=== PATIENT | female | born 1950 | race Caucasian/White ===

== ENCOUNTER 2020-08-04 11:08 | Emergency (ER) | payer OTHER ==
[~2020-08-04] VITALS: Ht 167.6 cm; Wt 67.6 kg
[2020-08-04 11:18] VITALS: BP 180/95
[2020-08-04] MEDS ORDERED: BLOOD PRESSURE MED (11:20)
[2020-08-04] MEDS ORDERED: SYNTHROID100 MC1 PO (11:20)
[2020-08-04] MEDS ORDERED: PREDNISONE 20 M20 M1 PO (11:45)
[2020-08-04] MEDS ORDERED: ZPAK PO (11:45)
== END 2020-08-04 11:56 | disposition home or self-care (01) ==
LOC: M.ERS 11:08
DX: J32.9 Chronic sinusitis, unspecified (principal); I10 Essential (primary) hypertension; E03.9 Hypothyroidism, unspecified; E11.9 Type 2 diabetes mellitus without complications; Z90.49 Acquired absence of other specified parts of digestive tract; Z79.899 Other long term (current) drug therapy

== ENCOUNTER 2021-01-16 05:40 | Observation (INO) | payer OTHER ==
[~2021-01-16] VITALS: Ht 167.6 cm; Wt 65.4 kg
[~2021-01-16 05:40] MED LIST: BLOOD PRESSURE MED; PREDNISONE 20 M20 M1 PO; SYNTHROID100 MC1 PO; ZPAK PO
[2021-01-16 05:50] VITALS: BP 206/107
[2021-01-16 06:10] LABS: ABSOLUTE BASOPHILS 0.1 thou/uL (0.0-0.2); ABSOLUTE EOSINOPHILS 0.1 thou/uL (0.0-0.7); ABSOLUTE LYMPHOCYTES 1.8 thou/uL (0.8-5.3); ABSOLUTE MONOCYTES 0.7 thou/uL (0.0-1.2); ABSOLUTE NEUTROPHILS 12.1 thou/uL (1.6-8.1); BASOPHILS 0.6 %; EOSINOPHILS 0.6 %; HEMATOCRIT 41.8 % (37.0-47.0); HEMOGLOBIN 13.8 gm/dL (12.0-15.0); LYMPHOCYTES 12.3 %; MCH 29.3 pg (26.0-34.0); MCHC 33.1 g/dL (28.0-37.0); MCV 88.6 fL (80.0-100.0); MPV 9.2 fl. (7.2-11.1); NUCLEATED RBCS 0 /100WBC; PLATELET COUNT* 270 thou/uL (150-400); POLYS 81.5 %; RBC 4.72 mil/uL (4.20-5.00); WBC 14.9 thou/uL (4.0-11.0)
[2021-01-16 06:23] LABS: CALCIUM 9.4 mg/dL (8.5-10.1); CREATININE 1.6 mg/dL (0.6-1.3); POTASSIUM 3.4 mmol/L (3.5-5.1)
[2021-01-16] MEDS ORDERED: NORVASC 2.5 MG2.5 MG PO (06:35)
[2021-01-16] MEDS ORDERED: LEVO-T50 MCG PO (06:36)
[2021-01-16] MEDS ORDERED: HYDROXYZINE HCL25 M2 PO (06:37)
[2021-01-16] MEDS ORDERED: GLIPIZIDE 10 MG10 MG PO (06:37)
[2021-01-16] MEDS ORDERED: METFORMIN HCL500 M3 PO (06:38)
[2021-01-16] MEDS ORDERED: GLUCOPHAGE1000 MG PO (06:38)
[2021-01-16] MEDS ORDERED: LIPITOR80 MG PO (06:38)
[2021-01-16 06:39] LABS: URINE BILIRUBIN NEGATIVE (Negative); URINE BLOOD 2+ (Negative); URINE CLARITY CLEAR; URINE COLOR YELLOW; URINE GLUCOSE-RANDOM 1+ (Negative); URINE KETONES TRACE (Negative); URINE LEUKOCYTES-REFLEX NEGATIVE (Negative); URINE NITRITE-REFLEX NEGATIVE (Negative); URINE PROTEIN 1+ (Negative); URINE UROBILINOGEN 0.2 E.U./dl (0.2-1.0)
[2021-01-16] MEDS ORDERED: LANTUS SUBQ (06:39)
[2021-01-16 06:47] LABS: SQUAMOUS 0-3 Few /LPF (0-3); WBC CLUMPS Few (None Seen)
[2021-01-16 06:48] LABS: CASTS None Seen /LPF (None Seen); CRYSTALS None Seen /LPF (None Seen); MUCUS 0-3 Light strn/LPF (None Seen); URINE RBC >20 Many /HPF (0-2); URINE WBC-REFLEX 6-15 Few /HPF (0-5)
[2021-01-16 10:15] VITALS: BP 135/79
--- NOTE | 2021-01-16 14:17 | EKG ---
[place] [address] ELECTROCARDIOGRAM REPORT Name: DIAMOND SPANN Arely Room: [address]#: [id number] Admission: 01/16/21 Attend Phys: Mala Hanley Discharge: Date of : 50 Date of Service: 01/16/21 1340 Report #: [id number] THIS REPORT FOR: //name// [facility] Test Date: 2021-01-16 Test Time: 13:40:57 Pat Name: DIAMOND SPANN Department: Room: [address] Gender: F Flake Drier: : 1950 Requested By: Zaki Chen Order Number: [id number] Dione MD: Fritz Trammell Measurements Intervals [place] Rate: 81 P: 10 PA: 131 QRS: 13 QRSD: 91 T: 47 QT: 402 QTc: 467 Interpretive Statements Sinus rhythm Low voltage, precordial leads RSR' in V1 or V2, right VCD or RVH No previous ECG available for comparison Electronically Signed On 01-16-2021 14:16:55 CDT by Fritz Trammell [email or web address] <ELECTRONICALLY SIGNED> By: Fritz Trammell MD, [facility] 01/16/21 1416 1340 1340 Fritz Trammell MD, [facility] /EPI
--- NOTE | 2021-01-16 18:07 | NUR ---
PATIENT ARRIVED TO UNIT FROM ER AT APPROX. 1025 FOR KIDNEY STONE. PATIENT IS A&OX4, PLEASANT AND COOPERATIVE WITH CARES. DENIES ANY PAIN/NAUSEA UPON ADMISSION. DR. DEXTER SAW PATIENT SHORTLY AFTER ADMISSION AND PATIENT WAS TAKEN TO PRE OP AT APPROX. 1330 FOR STONE REMOVAL. PATIENT RETURNED TO UNIT AT APPROX. 1635 AND HAS DENIED ANY PAIN/NAUSEA AND WAS ABLE TO TOLERATE REGULAR DIET AT DINNER. PATIENT IS UP WITH STANDBY ASSIST. CALL LIGHT AND FREQUENTLY USED ITEMS WITHIN REACH.
[2021-01-16 20:23] VITALS: BP 125/64
[2021-01-17 00:25] VITALS: BP 121/66
[2021-01-17 04:30] VITALS: BP 121/62
[2021-01-17 05:50] LABS: CALCIUM 8.7 mg/dL (8.5-10.1); CREATININE 1.7 mg/dL (0.6-1.3)
[2021-01-17 05:51] LABS: HEMATOCRIT 32.7 % (37.0-47.0); MCH 29.8 pg (26.0-34.0); MCHC 34.1 g/dL (28.0-37.0); MCV 87.4 fL (80.0-100.0); MPV 9.8 fl. (7.2-11.1); POTASSIUM 4.5 mmol/L (3.5-5.1); RBC 3.74 mil/uL (4.20-5.00); RDW-CV 12.5 % (10.5-14.5); WBC 10.5 thou/uL (4.0-11.0)
[2021-01-17 05:54] LABS: HEMOGLOBIN 11.2 gm/dL (12.0-15.0)
--- NOTE | 2021-01-17 07:39 | NUR ---
PATIENT HAS SLEPT WELL THROUGHOUT THE NIGHT. VSS ON RA. MEDICATIONS GIVEN ORDERED AND CHARTED. NO C/O PAIN. PATIENT UP WITH SBA. IV IN RIGHT FOREARM-SL. PATIENT INSTRUCTED TO USE CALL LIGHT WHEN NEEDING ASSISTANCE. HOURLY ROUNDS MADE. WILL CONTINUE WITH PLAN OF CARE AND NURSING TO MONITOR.
[2021-01-17 08:00] VITALS: BP 158/84
[2021-01-17] MEDS ORDERED: BACTRIM DS TAB1 EAC1 PO (09:47)
[2021-01-17 11:35] VITALS: BP 158/84
[2021-01-17 12:44] VITALS: BP 158/84
[2021-01-17 13:21] VITALS: BP 158/84
--- NOTE | 2021-01-17 19:53 | NUR ---
Pt remained A&Ox4 for entire shift. Vital signs stable. Pt denies pain. Pt walked out of building with nurse using a steady gait. Prescription called into [facility] on [facility].
--- NOTE | 2021-01-21 14:31 | OP ---
[address] [address] OPERATIVE REPORT Name: DIAMOND SPANN Room: [address] Lul Hauser#: [id number] Admission: 01/16/21 Attend Phys: Conrado Knox Discharge: 01/17/21 Date of : 50 Report #: [id number] THIS REPORT FOR: cc: KALYN BRADLEY APRN, ASHLEY APRN Haggard,Zaki Sky MD ~ DATE OF SERVICE: 01/16/2021 PREOPERATIVE DIAGNOSES: Distal right ureteral stone with proximal hydronephrosis. POSTOPERATIVE DIAGNOSES: Distal right ureteral stone with proximal hydronephrosis. PROCEDURE: Cystoscopy, right ureteroscopy with holmium laser lithotripsy, ureteroscopic stone extraction, placement of right ureteral stent with attached string. STAFF SURGEON: Zaki Chen MD ANESTHESIA: General. ESTIMATED BLOOD LOSS: None. COMPLICATIONS: None. SPECIMENS: Right ureteral stone fragments. DRAINS: A 28 cm x 4.8-Kenyan right ureteral stent. INDICATIONS: The patient is a very pleasant 70-year-old white female with a history of kidney stones 5 years ago, who began having nausea, vomiting and severe right flank pain yesterday, presented to [facility] where CT scan confirmed an 8 mm distal right stone with a couple of other stones. She was counseled regarding treatment options, elected for definitive cystoscopy, right retrograde pyelogram, right ureteroscopy, possible holmium laser lithotripsy, possible placement of right ureteral stent. After risks and benefits of the procedure were explained, informed consent was obtained. DESCRIPTION OF PROCEDURE: The patient was taken to the operating room, comfortably placed in the dorsal lithotomy position under adequate general anesthesia. She was sterilely prepped and draped in a standard fashion exposing only the genitalia. She received 1 gram of intravenous Ancef. A 22-Kenyan cystoscope with the obturator in place blindly inserted into the urethra. The obturator was removed, draining clear dmitri colored [place] [address] OPERATIVE REPORT Name: DIAMOND SPANN Room: [address]#: [id number] Admission: 01/16/21 Attend Phys: Conrado Knox Discharge: 01/17/21 Date of : 50 Report #: [id number] systematically viewed. Both ureteral orifices identified. There was actually stone could be seen in the opening in the right ureteral orifice; I tried using a grasping forceps, could not grab it. The cystoscope was removed and a 4.5 Kenyan tapered to a 6.5 Kenyan Hernandez semirigid ureteroscope advanced through the urethra up the right ureter. I used a 1.9 Kenyan nitinol basket, we grabbed 1 stone fragment. Repeat ureteroscopy was carried back to the urethra up the right ureter. We grabbed a second stone fragment out. The semirigid scope was placed back to the urethra, up the right ureter and I saw the large 8 mm stone. I was able to place a 0.035 Glidewire up the right ureter up to the level of kidney. The ureteroscope was removed leaving the guidewire in place, ureteroscope placed back through the urethra up the right ureter to the level of stone. The 272 micron holmium laser fiber set at 6.4 braswell broke the stone into 4+ fragments. It is converted to 2.4 Kenyan flat wire basket to remove those fragments out sequentially. Repeat ureteroscopy showed no other stone fragments remained. Ureteroscope was removed. A 28 cm x 4.8-Kenyan ureteral stent was then placed coaxial over the guidewire in position with a good coil in the right renal pelvis and a good coil in the bladder; string left attached, secured to the outside of the labia majora with a Tegaderm. She was extubated in the operating room and transferred to [facility] with assistance and went to recovery in stable condition. We will have her remove the stent on Tuesday. Follow up in our office in 6 weeks with a renal ultrasound and a KUB. <ELECTRONICALLY SIGNED> By: Zaki Chen MD 01/21/21 1431 1517 [id number] Chen MD /nt
== END 2021-01-17 13:05 | disposition home or self-care (01) ==
LOC: M.ERS 05:40 → M.TBA-ER 07:16 → M.ORTHSURG 07:16
PROVIDERS: Emergency Medicine; ADMIT Internal Medicine; ATTEND Internal Medicine
DX: N13.2 Hydronephrosis with renal and ureteral calculous obstruction (principal); Z20.822 Contact with and (suspected) exposure to COVID-19; E11.9 Type 2 diabetes mellitus without complications; I10 Essential (primary) hypertension; E78.5 Hyperlipidemia, unspecified; Z85.3 Personal history of malignant neoplasm of breast